=== PATIENT | female | born 1985 | race Caucasian/White ===

== ENCOUNTER 2021-11-28 14:19 | Emergency (ER) | payer OTHER, SELFPAY ==
--- NOTE | 2021-11-28 14:24 | ED.URI ---
HPI - URI/Sore Throat General Chief Complaint: Urogenital-Female Stated Complaint: back right middle pain frequent urination Time Seen by Provider: 11/28/21 14:24 Source: patient and RN notes reviewed History of Present Illness HPI Narrative: Patient is a 36-year-old female who presents the urgent care with complaints of possible UTI due to right flank pain, urinary frequency, suprapubic pressure. Patient states that started 1 week ago and seems to have gotten worse with the right flank pain. Patient states she did take Tylenol last night. Patient does have a history of GI issues and states that she always has lower abdominal tenderness. Denies of any nausea or vomiting. Denies of any known fever. No other acute complaints. No acute distress noted. Patient aware of the plan of care. Some parts of this dictation were generated by voice recognition software and may contain typographical and/or grammatical inaccuracies. Related Data Home Medications Medication Instructions Recorded Confirmed glipizide 5 mg PO BID 11/28/21 11/28/21 liraglutide [Victoza 3-Dakn] 1.8 mg SUBCUT DAILY 11/28/21 11/28/21 lisinopril 2.5 mg PO DAILY 11/28/21 11/28/21 metformin 1,000 mg PO BID 11/28/21 11/28/21 norgestimate-ethinyl estradiol 1 tablet PO DAILY 11/28/21 11/28/21 [Sprintec (28)] Allergies Allergy/AdvReac Type Severity Reaction Status Date / Time adhesive Allergy Intermediate Rash Verified 11/28/21 14:47 Review of Systems Review of Systems: CONSTITUTIONAL: Denies fever, chills, or sweats. EYES: Denies visual changes, redness, or discharge. ENT: Denies rhinorrhea, congestion, sore throat, or otalgia. CARDIOVASCULAR: Denies chest pain, palpitations, or edema. RESPIRATORY: Denies cough or dyspnea. GASTROINTESTINAL: Denies abdominal pain, nausea, vomiting, or diarrhea. GENITOURINARY: Reports of urinary frequency, urgency, right flank pain and suprapubic pressure SKIN: Denies rash or itching. MUSCULOSKELETAL: Denies back pain, joint pain, or myalgia. NEUROLOGIC: Denies headache, numbness, or weakness. All other systems reviewed are negative, except as documented in HPI. PMFSH Comments At the time of my signature, I reviewed and agree with the nursing past medical, surgical, social, and family history. There is no relevant family history pertinent to the patient complaint. Exam Narrative: GENERAL: This is a well-nourished, well-developed patient, in no apparent distress. HEAD: normocephalic, atraumatic. EYES: PERRL. Sclera clear/white. Vision is grossly intact. EARS: External ears normal NOSE: External nose normal with no obvious nasal discharge, nares without redness, no rhinorrhea. THROAT: Mucous membranes moist NECK: Neck supple CARDIOVASCULAR: Regular rate and rhythm without murmurs, gallops, or rubs. RESPIRATORY: Clear to auscultation. Breath sounds equal bilaterally. No wheezes, rales, or rhonchi. GASTROINTESTINAL: Abdomen soft, mild diffuse lower abdominal tenderness, nondistended. Bowel sounds are active. SKIN: warm, intact with no suspicious lesions or rash, good texture and turgor. NEURO: awake, alert, and oriented to person, place and time. There were no obvious focal neurologic abnormalities. EXTREMITIES: No clubbing, cyanosis, or edema. BACK: Mild right CVA tenderness Course Course Level of Care: Express Care Visit Vital Signs Vital signs: Vital Signs Temperature 96.5 F L 11/28/21 14:26 Pulse Rate 81 11/28/21 14:26 Respiratory Rate 16 11/28/21 14:26 Blood Pressure 123/66 11/28/21 14:26 Pulse Oximetry 100 11/28/21 14:26 Temperature 96.5 F L 11/28/21 14:26 Pulse Rate 81 11/28/21 14:26 Respiratory Rate 16 11/28/21 14:26 Blood Pressure 123/66 11/28/21 14:26 Pulse Oximetry 100 11/28/21 14:26 Reviewed MDM - URI/Sore Throat MDM Narrative Medical decision making narrative: Reviewed lab results with the patient. She is aware that urine analysis is not indicative of urinary tract i
[2021-11-28 14:26] VITALS: BP 123/66; PULSE 81; RESP 16; TEMP 35.8; O2SAT 100
== END 2021-11-28 15:00 | disposition home or self-care (01) ==
PROVIDERS: Emergency Provider Nurse Practitioner Family; PCP Physician Assistant
DX: R10.9 Unspecified abdominal pain (principal); E11.9 Type 2 diabetes mellitus without complications
CPT/HCPCS: 81003; 99212; G0463